=== PATIENT | male | born 1940 | race Caucasian/White ===

== ENCOUNTER → 2022-03-11 15:00 | Outpatient (CLI) | payer MEDICARE, OTHER, SELFPAY ==
--- NOTE | 2022-03-11 15:06 | DI.CT.S_ITS ---
PROCEDURE: CT CHEST W CON INDICATIONS: Abnormal findings on diagnostic imaging of other s TECHNIQUE: After the administration of intravenous contrast, 5 mm thick sections acquired from the pulmonary apices to the posterior costophrenic angles. 1 mm axial lung, 5 mm thick coronal and sagittal reformats and 7 mm axial MIP were acquired. For radiation dose reduction, the following was used: automated exposure control, adjustment of mA and/or kV according to patient size. COMPARISON: None. FINDINGS: Image quality: Excellent. Lungs and pleura: Diffuse septal thickening and bilateral moderate pleural effusions. There is some of areas that might be nodular. Possible air trapping focal areas are present. There may also be superimposed fibrosis. Mediastinum: Cardiomegaly. Coronary artery disease. No hiatal hernia. Thoracic mildly enlarged lymph nodes, for example pretracheal node measures 14 millimeters. Bones and chest wall: No acute or suspicious osseous abnormality. Possible deep chronic sternal deformity. Abdomen: Subcentimeter renal lesions are too small to characterize. There is a right upper pole renal cyst. Pancreatic atrophy IMPRESSION: Cardiomegaly with pleural effusions, suspected pulmonary edema. Mediastinal and hilar adenopathy, raising concern for malignancy. Septal thickening in the lungs could also represent lymphangitic spread of malignancy. Superimposed scarring/early fibrosis and atypical infection in the lungs is also possible. Follow-up chest CT is recommended following treatment of pulmonary edema. Any prior imaging would also be helpful. Dictated by: Bhargav Mendoza M.D. on 03/11/2022 at 17:34 Approved by: Bhargav Mendoza M.D. on 03/11/2022 at 17:39
== END ==
PROVIDERS: PCP Internal Medicine; Referring Provider Internal Medicine; Visit Provider Internal Medicine
DX: R93.89 Abnormal findings on diagnostic imaging of other specified body structures (principal); I51.7 Cardiomegaly; J90 Pleural effusion, not elsewhere classified; R59.0 Localized enlarged lymph nodes; R05.9 Cough, unspecified; I50.9 Heart failure, unspecified
CPT/HCPCS: 71260; Q9967